=== PATIENT | female | born 1940 | race Two or more races ===

== ENCOUNTER 2020-03-08 15:45 | Emergency (ER) | payer MEDICARE, OTHER ==
[~2020-03-08] VITALS: Ht 167.6 cm; Wt 77.6 kg
[~2020-03-08 15:45] MED LIST: BACL10TA PO; CARV25TA2 PO; CLON0.2T PO; ESOM40CA PO; IBUP-1955 PO; LISI-603 PO; LORA0.5T PO; METF-440 PO; MIRT15TA7 PO; POTA10TA17 PO; SPIR1TAB4 PO; ZOLP10TA6 PO
--- NOTE | 2020-03-08 16:34 | NUR ---
ORQUIDEA FROM HOME TO ER BED 6. ALERT AND AWAKE. NOT IS RESP DISTRESS. ANXIOUS. BROUGHT IN FOR SOB TODAY AND ABD LOWER ABD PAIN X 2 DAYS. DENIES N/V/D. DENIES COUGH. AFEBRILE. NOTED PT HYPERTENSIVE. MD AT BEDSIDE FOR EVAL. PT PLACED ON MONITOR.
--- NOTE | 2020-03-08 16:40 | NUR ---
SEEN AND EXAMINED BY .
--- NOTE | 2020-03-08 17:05 | NUR ---
COVID SWAB OBTAINED AND SENT TO LAB.
--- NOTE | 2020-03-08 17:10 | NUR ---
xray at bedside
--- NOTE | 2020-03-08 17:10 | NUR ---
IV LINE ESTABLISHED BLOOD DRAWN AND SENT TO LAB.
--- NOTE | 2020-03-08 17:17 | NUR ---
URINE SPECIMEN COLLECTED AND SENT TO LAB.
[2020-03-08 17:23] LABS: BASOPHILS # (AUTO) 0.1 /CMM (0.0-0.2); BASOPHILS % (AUTO) 1.3 % (0.0-2.0); EOSINOPHILS % (AUTO) 1.5 % (0.0-6.0); HEMATOCRIT 45 % (33-45); LYMPHOCYTES # (AUTO) 2.4 /CMM (0.8-4.8); LYMPHOCYTES % (AUTO) 32.5 % (20.0-44.0); MEAN CORPUSCULAR HGB CONC 33 g/dl (31.0-36.0); MEAN CORPUSCULAR VOLUME 91 fL (82-100); MONOCYTES # (AUTO) 0.7 /CMM (0.1-1.30); MONOCYTES % (AUTO) 9.5 % (2.0-12.0); NEUTROPHILS # (AUTO) 4.1 /CMM (1.8-8.9); NEUTROPHILS % (AUTO) 55.2 % (43.0-81.0); PLATELET COUNT (AUTO) 241 /CMM (150-450); RED BLOOD CELL COUNT(AUTO) 4.98 MIL/uL (4.0-5.2); WHITE BLOOD COUNT (AUTO) 7.3 K/uL (4.3-11.0)
[2020-03-08] MEDS ORDERED: LABETALOL HCL IV 100MG VIAL ONE (17:23)
[2020-03-08 17:30] LABS: CARBON DIOXIDE 21 mmol/L (21-32); CHLORIDE 99 mmol/L (98-107); CREATININE 1.4 mg/dL (0.6-1.3); GLUCOSE 91 mg/dL (74-106); POTASSIUM 3.6 mmol/L (3.5-5.1); SODIUM SERUM 135 mmol/L (136-145); UREA NITROGEN, BLOOD 19 mg/dL (7-18)
[2020-03-08] MEDS ORDERED: LABETALOL 20 MG/4 ML VIAL IV ONE (17:30)
--- NOTE | 2020-03-08 17:38 | NUR ---
pt to radiology
[2020-03-08] MEDS ORDERED: LORAZEPAM INJ 2 MG/ML VIAL ONE (17:44)
[2020-03-08 17:45] LABS: APPEARANCE,URINE Clear (CLEAR); BILIRUBIN,URINE Negative (NEGATIVE); BLOOD, URINE Negative Ery/uL (NEGATIVE); COLOR,URINE Yellow (YELLOW); KETONES,URINE Negative (NEGATIVE); LEUKOCYTE ESTERASE ,URINE Negative (NEGATIVE); NITRITE, URINE Negative (NEGATIVE); PROTEIN,URINE Negative (NEGATIVE); UGLUCOSE Negative (NEGATIVE); UROBILINOGEN,URINE 0.2 EU/dL (0.2)
[2020-03-08] MEDS ORDERED: LORAZEPAM 0.5 MG TABLET ONE (17:48)
[2020-03-08 17:50] LABS: ALANINE AMINOTRANSFERASE 32 U/L (12-78); ALKALINE PHOSPHATASE 88 U/L (46-116); ASPARTATE AMINOTRANSFERASE 20 U/L (15-37); BILIRUBIN,DIRECT 0.1 mg/dL (0.0-0.2); BILIRUBIN,TOTAL 0.5 mg/dL (0.2-1.0); TOTAL PROTEIN, SERUM 8.2 g/dL (6.4-8.2)
[2020-03-08 17:54] LABS: D-DIMER 0.4 mg/L(FEU (0.17-0.50)
[2020-03-08] MEDS ORDERED: LORAZEPAM 1 MG TABLET PO ONE (18:00)
[2020-03-08 18:12] LABS: CREATINE KINASE, TOTAL 45 U/L (26-192); FERRITIN 76 ng/mL (8-388)
[2020-03-08 18:13] LABS: C-REACTIVE PROTEIN < 0.2 mg/dL (0.0-0.9)
--- NOTE | 2020-03-08 18:40 | NUR ---
md made aware that bp is still 216/115 after labetalol 71min ago. md ordered to give hydralazine 10mg iv x 1.
[2020-03-08] MEDS ORDERED: hydrALAZINE HCL IV 20 MG VIAL ONE (18:41)
[2020-03-08] MEDS ORDERED: hydrALAZINE HCL IV 20 MG VIAL IV ONE (19:00)
--- NOTE | 2020-03-08 19:12 | NUR ---
son contacted aftercare instruction given. will pick up attendant pt in 30 min
--- NOTE | 2020-03-08 19:37 | NUR ---
PT'S SON CAME IN TO [employer]PERVIS[employer] THE PATIENT. PT WAS WHEELED OUT OF THE ER ON A WHEELCHAIR. PT IS AMBULOATORY WITH SBA.
[2020-03-08 19:38] VITALS: BP 160/97
== END 2020-03-08 19:39 | disposition home or self-care (01) ==
LOC: ER 15:49
DX: I10 Essential (primary) hypertension (principal); F41.9 Anxiety disorder, unspecified; R53.1 Weakness; Z86.73 Personal history of transient ischemic attack (TIA), and cerebral infarction without residual deficits; I25.10 Atherosclerotic heart disease of native coronary artery without angina pectoris; Z79.84 Long term (current) use of oral hypoglycemic drugs; Z79.899 Other long term (current) drug therapy; Z90.49 Acquired absence of other specified parts of digestive tract; Z20.828 Contact with and (suspected) exposure to other viral communicable diseases
CPT/HCPCS: 36415; 70450; 71045; 80048; 80076; 81001; 82550; 82728; 83605; 83615; 84145; 84484; 85025; 85378; 85730; 86140; 87040 ×2; 87086; 87635; 93005; 96374; 96375; 99285; J0360; J2060; J3490 ×2; 81000-TC